=== PATIENT | female | born 1945 | race Caucasian/White ===

== ENCOUNTER 2018-04-13 19:51 | Emergency (ER) | payer MEDICAID ==
[2018-04-13 19:51] VITALS: BMI 25.6
[2018-04-13] MEDS ORDERED: Sodium Chloride 0.9% 1,000 ML IV ONE (20:21)
--- NOTE | 2018-04-13 20:26 | C.PDOC ---
History Of Present Illness 73 year old female presents to the ED for evaluation of diarrhea, weakness and mild lower back pain which began 2 days ago. She denies fever, chills and has no other complaints at this time. states low back pain for a long time 2/2 sciatica. Time Seen by Provider: 04/13/18 20:14 Chief Complaint (Nursing): GI Problem History Per: Patient History/Exam Limitations: no limitations Onset/Duration Of Symptoms: Days (2) Current Symptoms Are (Timing): Still Present Quality Of Discomfort: "Pain" Associated Symptoms: Diarrhea, Back Pain (lower). denies: Fever, Chills Additional History Per: Patient Abnormal Vaginal Bleeding: No Past Medical History Reviewed: Historical Data, Nursing Documentation, Vital Signs Vital Signs: Last Vital Signs Temp 98.2 F 04/13/18 21:46 Pulse 81 04/13/18 21:46 Resp 18 04/13/18 21:46 BP 149/90 04/13/18 21:46 Pulse Ox 99 04/13/18 21:46 - Medical History PMH: Arthritis, Bronchitis, Diabetes, HTN, Hypercholesterolemia Surgical History: No Surg Hx Family History: States: Unknown Family Hx - Social History Hx Tobacco Use: No Hx Alcohol Use: No Hx Substance Use: No - Immunization History Hx Tetanus Toxoid Vaccination: No Hx Influenza Vaccination: No Hx Pneumococcal Vaccination: No Review Of Systems Constitutional: Positive for: Weakness. Negative for: Fever, Chills Gastrointestinal: Positive for: Diarrhea Musculoskeletal: Positive for: Back Pain (mild, lower) Physical Exam - Physical Exam Appears: Non-toxic, No Acute Distress Skin: Normal Color, Warm, Dry Head: Atraumatic, Normacephalic Eye(s): bilateral: Normal Inspection Oral Mucosa: Moist Neck: Supple Chest: Symmetrical, No Deformity, No Tenderness Cardiovascular: Rhythm Regular, No Murmur Respiratory: Normal Breath Sounds, No Rales, No Rhonchi, No Wheezing Gastrointestinal/Abdominal: Soft, No Tenderness, No Guarding, No Rebound Back: No Vertebral Tenderness, No Paraspinal Tenderness Extremity: Normal ROM, Capillary Refill (less than 2 seconds ) Neurological/Psych: Oriented x3, Normal Speech, Normal Cognition ED Course And Treatment - Laboratory Results Result Diagrams: 04/13/18 20:54 04/13/18 20:54 O2 Sat by Pulse Oximetry: 98 (on RA) Pulse Ox Interpretation: Normal Medical Decision Making Medical Decision Making: ro dehydration, electroylte abnormalities, infectious etiology Progress: Bloodwork and urinalysis ordered and reviewed. IV Fluids given. pt reassesed; abd soft no ttp labs neg. urine ?pos. pt denies any symptoms. offered additional obs and ct abd/pelvis. pt declines asking for dc home Disposition - Disposition Referrals: [facility] [Outside] [facility] [Outside] Toño Alexander MD [Staff Provider] - Disposition: HOME/ ROUTINE Disposition Time: 21:24 Condition: STABLE Additional Instructions: please follow up with your doctor/clinic. please see specialists. return to er with worsening symptoms or concerns. you are declining any ct scan imaging. you are able to return to any er with any concern at any time. Instructions: Diarrhea in Adolescents and Adults, Acute Abdomen (Belly Pain) Forms: [employer] (Uzbek) - Clinical Impression Clinical Impression: Diarrhea - Scribe Statement The provider has reviewed the documentation as recorded by the Scribe (Sheila Porter) Provider Attestation: All medical record entries made by the Scribe were at my direction and personally dictated by me. I have reviewed the chart and agree that the record accurately reflects my personal performance of the history, physical exam, medical decision making, and the department course for this patient. I have also personally directed, reviewed, and agree with the discharge instructions and disposition.
[2018-04-13 20:59] LABS: BASO % 0.3 % (0.0-2.0); EOS # 0.5 K/uL (0.0-0.7); EOS % 5.4 % (0.0-4.0); HEMOGLOBIN 12.6 g/dL (11.0-16.0); LYMPH # 2.7 K/uL (1.0-4.3); LYMPH % 29.9 % (20.0-40.0); MEAN CELL VOLUME 87.6 fL (81.0-99.0); MEAN CORPUSCULAR HEMOGLOBIN 28.8 pg (27.0-31.0); MEAN CORPUSCULAR HGB CONC 32.9 g/dL (33.0-37.0); MEAN PLATELET VOLUME 7.6 fL (7.2-11.7); MONO # 0.7 K/uL (0.0-0.8); MONO % 7.8 % (0.0-10.0); NEUT % 56.6 % (50.0-75.0); NRBC % 0.1 % (0.0-2.0); RBC 4.36 Mil/uL (3.80-5.20); RED CELL DISTRIBUTION WIDTH 13.9 % (11.5-14.5); WHITE BLOOD COUNT 8.9 K/uL (4.8-10.8)
[2018-04-13 21:07] LABS: PROTHROMBIN TIME 11.4 SECONDS (9.7-12.2)
[2018-04-13 21:13] LABS: ALB/GLOB RATIO 1.3 (1.0-2.1); ALBUMIN 3.9 g/dL (3.5-5.0); ALT/SGPT 19 U/L (9-52); AST/SGOT 19 U/L (14-36); BLOOD UREA NITROGEN 9 mg/dL (7-17); CALCIUM 9.1 mg/dl (8.6-10.4); GFR AFRICAN-AMERICAN > 60; GFR NON-AFRICAN AMERICAN > 60; LIPASE 86 U/L (23-300); SQUAMOUS EPITHIAL < 1 /hpf (0-5); URINE BACTERIA RARE (<OCC); URINE BILIRUBIN NEGATIVE (NEGATIVE); URINE BLOOD NEGATIVE (NEGATIVE); URINE CLARITY Clear (Clear); URINE COLOR Yellow (YELLOW); URINE GLUCOSE (UA) NORMAL (Normal); URINE LEUKOCYTE ESTERASE 2+ Leu/uL (Negative); URINE PROTEIN NEGATIVE (NEGATIVE); URINE UROBILINOGEN NORMAL mg/dL (0.2-1.0)
[2018-04-13 21:49] VITALS: BP 149/90; PULSE 81; RESP 18; TEMP 98.2
[2018-04-13 22:57] VITALS: O2SAT 98
== END 2018-04-13 21:50 | disposition home or self-care (01) ==
LOC: C.ER 19:51
DX: R19.7 Diarrhea, unspecified (principal); E11.9 Type 2 diabetes mellitus without complications; E78.00 Pure hypercholesterolemia, unspecified; I10 Essential (primary) hypertension
CPT/HCPCS: 80053; 81001; 83690; 85025; 85610; 85730; 99285; J7030